=== PATIENT | female | born 1950 | race Caucasian/White ===

== ENCOUNTER 2019-03-29 23:40 | Emergency (ER) | payer MEDICARE, OTHER ==
[~2019-03-29] VITALS: Ht 165.1 cm; Wt 77.1 kg
--- NOTE | 2019-03-29 23:55 | NUR ---
PATIENT ARRIVE AT THE ER WITH CHIEF COMPLAINT OF ITCHY RASH X6 HRS THROUGHOUT HER BODY. TOOK 50MG BENADRYL 1HR [employer]. PATIENT AAOX4. DENIES SOB. NAD. NO CARDIOVASCULAR CONCERN. NO /GI CONCERN.
--- NOTE | 2019-03-29 23:56 | NUR ---
RAO ORTIZ AT BEDSIDE FOR MSE.
[2019-03-30] MEDS ORDERED: EPINEPHRINE 1 MG/1 ML AMP SQ ONE
[2019-03-30] MEDS ORDERED: predniSONE 10 MG TABLET PO ONE
[2019-03-30] MEDS ORDERED: diphenhydrAMINE 50 MG/1 ML VIAL IM ONE
[2019-03-30] MEDS ORDERED: diphenhydrAMINE 50 MG/1 ML VIAL ONE (00:08)
[2019-03-30] MEDS ORDERED: predniSONE 10 MG TABLET ONE (00:09)
[2019-03-30] MEDS ORDERED: EPINEPHRINE 1 MG/1 ML AMP ONE (00:09)
[2019-03-30] MEDS ORDERED: predniSONE 50 MG TABLET ONE (00:09)
--- NOTE | 2019-03-30 01:45 | NUR ---
Patient discharged to home in stable conditon. Written and verbal after care instructions given. Patient verbalizes understanding of instructions. Patient ambulated out of ER with steady gait. All belongings with patient
[2019-03-30 01:46] VITALS: BP 124/60
== END 2019-03-30 01:46 | disposition home or self-care (01) ==
LOC: ER 23:48
DX: L50.9 Urticaria, unspecified (principal); E78.5 Hyperlipidemia, unspecified; K21.9 Gastro-esophageal reflux disease without esophagitis; Z88.0 Allergy status to penicillin
CPT/HCPCS: 96372 ×2; 99283; J0171; J1200; J7512 ×2; A4663

== ENCOUNTER 2019-03-30 22:03 | Emergency (ER) | payer MEDICARE, OTHER ==
[~2019-03-30] VITALS: Ht 165.1 cm; Wt 77.1 kg
--- NOTE | 2019-03-30 22:18 | NUR ---
PATIENT ARRIVE AT THE ER WITH CHEIF COMPALINT OF RASH TO UPPER BODY AND PREM. UE SINCE YESTERDAY. PATIENT WAS SEEN HERE AT THE ER YESTERDAY FOR SAME COMPLAINT, GOT BETTER YESTERDAY, WENT HOME WITH RX MEDS AND NOW RASHES IS BACK AND IS WORST. PATIENT AAOX4. IN NO ACUTE RESPIRATORY DISTRESS. NO CARDIOVASCULAR CONCERN. NO /GI CONCERN.
--- NOTE | 2019-03-30 22:34 | NUR ---
RAO ORTIZ AT BEDSIDE FOR MSE.
[2019-03-30 23:21] VITALS: BP 130/66
--- NOTE | 2019-03-30 23:21 | NUR ---
Patient discharged to home in stable conditon. Written and verbal after care instructions given. Patient verbalizes understanding of instructions. Patient ambulated out of ER with steady gait. All belongings with patient.
== END 2019-03-30 23:22 | disposition home or self-care (01) ==
LOC: ER 22:03
DX: B35.4 Tinea corporis (principal); L50.9 Urticaria, unspecified; E78.5 Hyperlipidemia, unspecified; K21.9 Gastro-esophageal reflux disease without esophagitis; J45.909 Unspecified asthma, uncomplicated; Z88.0 Allergy status to penicillin
CPT/HCPCS: A4663